=== PATIENT | female | born 1975 ===

== ENCOUNTER 2016-07-29 20:11 | Emergency (ER) | payer MEDICAID ==
[~2016-07-29] VITALS: Ht 165.1 cm; Wt 81.8 kg
[2016-07-29 20:13] VITALS: BP 131/86; PULSE 104; RESP 20; O2SAT 100
--- NOTE | 2016-07-29 21:00 | ED.REPORT ---
HPI-Rash / Abscess Date of Service July 29, 2016 ED Provider: Love GillespieO. A 40 year old female with a history of abscess presents to the ED with a raised lump on her lower back onset three days ago. The area is red and painful. The patient denies other symptoms. Nursing Notes Stated Complaint: ABSCESS ON BACK Chief Complaint: Skin Rash/Abscess Nursing Notes Reviewed: Yes Allergies: Coded Allergies: acetaminophen (Unverified Allergy, Severe, Hives, 05/07/15) hydrocodone (Unverified Allergy, Severe, Hives, 05/07/15) General Time Seen by MD: 21:00 Chief Complaint Other (Bump on Lower Back) Hx Obtained From: Patient Arrived By: Walk-in Onset Occurred: 3 days ago Symptom Duration: Since onset Location: : Back Quality: Painful Severity: Current: Moderate Severity: Maximum: Moderate Pertinent Negative: Relieved by nothing Recent Healthcare: No recent doctor visit Past Medical History Past Medical History Abscess Past Surgical History Reports: Smoking History Never Smoker Social History Alcohol Use: "Social" Drug Use: Denies drug use Other Social History: Good social support, Local resident Occupation single lives by self, no work or school Ambulatory Status Independent Review of Systems Constitutional: Denies: Fever Respiratory: Denies: Non-productive cough, Shortness of breath GI: Denies: Diarrhea, Vomiting Musculoskeletal: Reports: Back pain (Around bump on lower back) Skin: Reports Rash (Redness on lower back), Reports Swelling (Bump on lower back) Complete sys rev & neg: except as marked. Physical Exam Physical Exam Notes: Initial Vital Signs Vital Signs (First) Date Time Temp Pulse Resp B/P Pulse Ox O2 Delivery O2 Flow Rate FiO2 07/29/16 20:13 35.9 104 20 131/86 100 Room Air Initial VS: Reviewed Head / Eyes: Atraumatic, Normocephalic ENT: Conjunctiva normal, No scleral icterus Neck: Supple, Full range of motion Neurologic: Alert, Oriented, Nonfocal Psychiatric: Mood/affect normal, Behavior normal, Normal thought content General/Constitutional: Awake, Alert Skin: Warm, Dry Lower back: 3cm area of induration with a center raised papular lesion and ulceration Re-Eval/Medical Decision Source of Hx: Old records Re-Evaluation/Progress : Time of Eval: 21:13 Patient Status: Condition improved Re-Evaluation/Progress Note: Discussed with patient physical exam findings, diagnosis, and plan for discharge. Follow-up and return to the ER instructions given. Patient agrees with plan for care and all questions were addressed. Counseled Regarding: Diagnosis, Need for follow-up, When/why to return to ED Discharge & Departure Impression: Primary Impression: Cellulitis Site of cellulitis: trunk Site of cellulitis of trunk: back Qualified Code : L03.312 - Cellulitis of back [any part except buttock] Disposition: Home Discharge Condition All VS Reviewed: Yes Condition: Improved Patient Instructions: Cellulitis (ED) Additional Instructions: Thank you for entrusting us with your care. Please take Doxycycline twice daily for five days, as prescribed. Avoid direct sunlight while taking the Doxycycline. Apply mupirocin ointment 2-3 times per day. 1-2 Oxycodone every six hours as needed for pain. Do not drink alcohol, drive, or consume acetaminophen while taking Oxycodone. Call your primary care provider on Sunday for a follow-up appointment. Return to the ER with any new or worsening symptoms including increased swelling or softness. Referrals: VEENA SALAS (PCP) Donna Attestation Portions of this note were transcribed by Zhanna Ruiz. I, Dr. Escalante, personally performed the history, physical exam, and medical decision-making; I reviewed and confirmed the accuracy of the information in the transcribed note. Signed by: Donna Gonzales, 07/29/2016, 21:40 copies to: VEENA SALAS Todd P DO July 29, 2016 21:00 ZHANNA RUIZ July 29, 2016 21:10
[2016-07-29] MEDS ORDERED: Mupirocin 2% 22 Gm Ointment TOPICAL ONE (21:10)
[2016-07-29 21:46] VITALS: BP 124/93; PULSE 91; RESP 18; O2SAT 100
== END 2016-07-29 21:48 | disposition home or self-care (01) ==
LOC: SED 20:11
DX: L03.312 Cellulitis of back [any part except buttock and flank] (principal); Z88.5 Allergy status to narcotic agent; Z88.6 Allergy status to analgesic agent